=== PATIENT | male | born 1955 | race Caucasian/White ===

== ENCOUNTER → 2023-08-07 13:21 | Outpatient (REF) | payer MEDICARE, OTHER, SELFPAY | LOC: DHCBC MAIN 13:21 | PROVIDERS: ATTENDING PHYSICIAN Internal Medicine Cardiovascular Disease; FAMILY PHYSICIAN Family Medicine | DX: Q20.9 Congenital malformation of cardiac chambers and connections, unspecified (principal) | CPT/HCPCS: 93306 ==